=== PATIENT | female | born 1945 | race Caucasian/White ===

== ENCOUNTER 2016-12-13 06:20 | Day surgery (SDC) | payer MEDICARE, BC ==
--- NOTE | ~2016-12-13 | EGD ---
EGD REPORT [facility] [address] [address] NAME: SUZI HIRSCH : [birth year] [place]US [place] [facility] [place] [id number] AGE: 71 ADM/REG DATE : 12/13/16 MR#: [id number] REPORT SERV DATE: 12/13/16 DICTATED BY: SAPNA DOCKERY DATE: 12/13/16 REPORT STATUS : Draft TRANSCRIBED BY: [facility] DATE: 12/13/16 Endoscopy Center Patient Name: Suzi Hirsch Date of : 1945 Attending MD: SAPNA DOCKERY MD Procedure Date No Time: 12/13/2016 Procedure: Colonoscopy Indications: Screening in patient at increased risk: Family history of 1st-degree relative with colorectal cancer Referring MD: SUSAN DA SILVA MD Medicines: as per anesthesia Complications: No immediate complications. Procedure: Pre-Anesthesia Assessment: - ASA Grade Assessment: III - A patient with severe systemic disease. After I obtained informed consent, the scope was passed under direct vision. Throughout the procedure, the patient's blood pressure, pulse, and oxygen saturations were monitored continuously. The [facility] [id number] was introduced through the anus and advanced to the ileocolonic anastomosis. The colonoscopy was performed without difficulty. The patient tolerated the procedure. The quality of the bowel preparation was adequate to identify polyps. Findings: The perianal and digital rectal examinations were normal. There was evidence of a prior end-to-side ileo-colonic anastomosis in the ascending colon. This was patent. This was characterized by healthy appearing mucosa. A few small-mouthed diverticula were found in the sigmoid colon. Internal hemorrhoids were found during endoscopy and were mild. Impression: - Patent end-to-side ileo-colonic anastomosis. - Diverticulosis in the sigmoid colon. - Internal hemorrhoids. Recommendation: - Repeat colonoscopy in 5 years for surveillance. Procedure Code(s): --- Professional --- 74902, Colonoscopy, flexible, proximal to splenic flexure; diagnostic, with or without collection of specimen(s) by brushing or washing, with or without colon decompression (separate procedure) EGD REPORT [facility] [address] [place]. [address] NAME: SUZI HIRSCH : [birth year] [place] [facility] [place] [id number] AGE: 71 ADM/REG DATE : 12/13/16 MR#: [id number] REPORT SERV DATE: 12/13/16 DICTATED BY: SAPNA DOCKERY. DATE: 12/13/16 REPORT STATUS : Draft TRANSCRIBED BY: [employer] [facility] DATE: 12/13/16 Diagnosis Code(s): --- Professional --- Z98.0, Intestinal bypass and anastomosis status K64.8, Other hemorrhoids K57.30, Diverticulosis of large intestine without perforation or abscess without bleeding Z12.11, Encounter for screening for malignant neoplasm of colon Z80.0, Family history of malignant neoplasm of digestive organs CPT copyright 2013 [employer]. All rights reserved. The codes documented in this report are preliminary and upon remote medical coder review may be revised to meet current compliance requirements. SAPNA DOCKERY MD 12/13/2016 8:19 AM This report has been signed electronically. Number of Addenda: 0 Note Initiated On: 12/13/2016 7:52 AM Scope Withdrawal Time 0 hours 6 minutes 58 seconds [address] [place] [address]
[~2016-12-13 06:20] MED LIST: ATEN25 PO; ATEN50 PO; BETAPACE80 PO; BETIMOL0.5 % OPH; CALTRA600D PO; CALTRAT600 PO; CELEBREX2 PO; ELIQUIS 5 MG TAB5 MG PO; FISH-EPA1000 MG PO; FLECAINIDE100 MG PO; FLECAINIDE50 MG PO; FLONASE NAS; GINKGO BILO2 PO; GLUCOSAMINEPO PO; LINZESS 145 M145 MCG PO; LINZESS PO; OXYCOD PO; PERCOCET1 TA4 PO; TIMOLOL MAL0.5 % OPH; VITE PO; ZOFRAN ODT4 MG PO; [UNRECOGNIZED DRUG - OTHER] PO
== END 2016-12-13 23:59 | disposition home or self-care (01) ==
LOC: DMU 06:20
PROVIDERS: Internal Medicine Gastroenterology
PROC: 0DJD8ZZ Inspection of Lower Intestinal Tract, Via Natural or Artificial Opening Endoscopic (ICD-10-PCS; principal; 2016-12-13 07:30)
DX: Z12.11 Encounter for screening for malignant neoplasm of colon (principal); K64.8 Other hemorrhoids; M19.90 Unspecified osteoarthritis, unspecified site; K59.00 Constipation, unspecified; K57.30 Diverticulosis of large intestine without perforation or abscess without bleeding; I10 Essential (primary) hypertension; I48.91 Unspecified atrial fibrillation; Z80.0 Family history of malignant neoplasm of digestive organs; Z98.0 Intestinal bypass and anastomosis status; Z88.2 Allergy status to sulfonamides; Z79.899 Other long term (current) drug therapy; Z90.710 Acquired absence of both cervix and uterus; Z98.890 Other specified postprocedural states

== ENCOUNTER 2017-01-25 08:23 | Day surgery (SDC) | payer MEDICARE, BC ==
[2017-01-24 16:43] LABS: BASOPHILS 1.1 %; BASOPHILS ABSOLUTE 0.09 10/3/uL (0.0-0.16); EOSINOPHILS 4.3 %; EOSINOPHILS ABSOLUTE 0.36 10/3/uL (0.0-0.53); IMMATURE GRANULOCYTES 0.2 %; IMMATURE GRANULOCYTES ABSOLUTE 0.02 10/3/uL (0.0-0.11); LYMPHOCYTES 29.9 %; MEAN CORPUS HGB CONC 33.3 g/dL (32.0-36.0); MEAN CORPUSCULAR HEMOGLOB 31.3 pg (26.0-34.0); MEAN CORPUSCULAR VOLUME 94.1 fL (80-100); MEAN PLATELET VOLUME 9.7 fL (9.2-13.0); MONOCYTES 10.3 %; MONOCYTES ABSOLUTE 0.86 10/3/uL (0.21-1.20); NEUTROPHILS 54.2 %; NEUTROPHILS ABSOLUTE 4.52 10/3/uL (2.02-8.40); PLATELET COUNT 216 10/3/uL (150-400); RBC DISTRIBUTION WIDTH 13.9 % (12.0-16.0)
[2017-01-24 16:45] LABS: HEMATOCRIT 41.2 % (36.0-48.0); HEMOGLOBIN 13.7 g/dL (12.0-16.0); MANUAL DIFF NO %; RED CELL COUNT 4.38 10/6/uL (4.0-5.6); WHITE BLOOD CELLS 8.4 10/3/uL (4.5-10.5)
[2017-01-24 16:54] LABS: BUN (BLOOD UREA NITROGEN) 10 MG/DL (6-23); CALCIUM, SERUM 9.4 MG/DL (8.5-10.4); CHLORIDE, SERUM 107 MMOL/L (96-112); CO2 (CARBON DIOXIDE) 29 MMOL/L (24-34); CREATININE 0.73 MG/DL (0.55-1.02); GFR AFRICAN AMERICAN 95 ML/MIN (>=60); GFR NON AFRICAN AMERICAN 82 ML/MIN (>=60); GLUCOSE, SERUM 102 MG/DL (60-99); POTASSIUM, SERUM 3.8 MMOL/L (3.5-5.3); SODIUM, SERUM 146 MMOL/L (135-148)
--- NOTE | ~2017-01-25 | OP ---
Record Of Operation [facility] [address] [place]. [address] NAME: MICAH IHRSCH : 43 STATUS : REG [facility] [place] PAT#: [id number] AGE: 71 ADM/REG DATE : 01/25/17 MR#: [id number] REPORT SERV DATE: 01/25/17 DICTATED BY: JEAN SILVA DATE: 01/25/17 REPORT STATUS : Draft TRANSCRIBED BY: [employer]on[employer] DATE: 01/25/17 DATE OF PROCEDURE: 01/25/2017 PREOPERATIVE DIAGNOSES: Right groin pseudoaneurysm and arteriovenous fistula, acquired. POSTOPERATIVE DIAGNOSES: Right groin pseudoaneurysm and arteriovenous fistula, acquired. PROCEDURE: 1. Aortogram with right groin arteriogram. 2. Covered stent placement in the right superficial femoral artery. FELLOW: Reymundo. ANESTHESIA: Local with sedation. COMPLICATIONS: None. BLOOD LOSS: Minimal. 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 She had percutaneous intervention for the pseudoaneurysm, however, it did not completely resolve. Ultrasound showed this to have a short neck and it is was felt repeat percutaneous thrombin injection would not be a good option. The plan is for arteriogram and covered stent placement if possible to the treat the pseudoaneurysm and possibly the AV fistula. I discussed in detail with the patient and her and they expressed understanding and desired to proceed. DESCRIPTION OF PROCEDURE: The patient was taken to the operating room and placed in the supine position. She was given IV sedation without complication. Both groins were prepped and draped in sterile fashion. Ultrasound was used to identify the common femoral artery on the left. 1% lidocaine was infiltrated in the skin and subcutaneous tissues. Under ultrasound guidance, an 18-gauge needle was placed into the common femoral artery. A wire was passed into the aorta, which confirmed with fluoroscopy. The needle was removed and a 5 [place] sheath was placed. UF catheter was passed over the wire in the aorta. Aortogram shows patent aorta with patent left renal artery. The right renal artery was not visualized due to catheter placement. The remaining aorta was widely patent. The bilateral common internal and external iliac arteries were patent. The wire was placed in the catheter and the catheter was placed in the external iliac artery. Arteriogram on the right groin was performed showing a patent external iliac artery, common femoral artery, profunda femoral artery, and superficial femoral artery. A pseudoaneurysm could be seen anterior to the superficial femoral artery as well as prompt filling of the femoral vein suggestive of a fistula. Arteriogram was performed both in the LAURA nearly lateral and PERUVIAN projection. These images confirm a pseudoaneurysm as well as an AV fistula, which is arising off the superficial femoral artery. A Christiano catheter was placed into the profunda femoral artery and selective branch that was thought to be in the vicinity of the fistula and arteriogram shows the branch to be patent, but no connection with the vein. A repeat arteriogram with the Record Of Operation [facility] [address] [facility] [address] [place]. [address] NAME: MICAH HIRSCH : [birth year] STATUS : REG [facility] [place] PAT#: [id number] AGE: 71 ADM/REG DATE : 01/25/17 MR#: [id number] REPORT SERV DATE: 01/25/17 DICTATED BY: JEAN SILVA DATE: 01/25/17 REPORT STATUS : Draft TRANSCRIBED BY: NITISH DATE: 01/25/17 [place]rose catheter in the SFA once again confirmed an AV fistula off the superficial femoral artery. At this point, the wire was placed. Sheath was exchanged for a 7 x 45 sheath. The patient was given 3000 units of heparin intravenously. A 7 x 50 Viabahn stent was placed through the SFA origin and arteriogram performed, which showed good placement of the stent to treat both the pseudoaneurysm and the AV fistula. The stent was deployed without difficulty. Post arteriogram was performed with multiple angles showing a widely patent stent. There was no evidence of filling of the fistula or the pseudoaneurysm. This was felt to be an excellent result. The sheath was removed and left groin access was closed with a ProGlide device without difficulty. The patient tolerated the procedure well. She will be taken to the recovery room and discharged home in a few hours if stable. EDUARDO/NITISH Jean Silva M.D. / [id number] CC: Jean Silva M.D. Kevin Knowles M.D.
[2017-01-25] MEDS ORDERED: PLAVIX PO (13:11)
== END 2017-01-25 15:00 | disposition home health service (06) ==
LOC: SDC 08:23 → SSU1 12:13
PROVIDERS: Surgery
DX: I72.4 Aneurysm of artery of lower extremity (principal); I77.0 Arteriovenous fistula, acquired; I10 Essential (primary) hypertension; I48.91 Unspecified atrial fibrillation; M19.90 Unspecified osteoarthritis, unspecified site; R56.9 Unspecified convulsions; Z88.2 Allergy status to sulfonamides; Z79.899 Other long term (current) drug therapy; Z87.891 Personal history of nicotine dependence; F17.210 Nicotine dependence, cigarettes, uncomplicated; Z90.710 Acquired absence of both cervix and uterus; Z98.890 Other specified postprocedural states; Z90.49 Acquired absence of other specified parts of digestive tract
CPT/HCPCS: 37226; 75625; 75710; 80048; 85025; 93005; A9270-GY; C1760; C1769; C1874; C1894; J0690; J3010; Q9966